=== PATIENT | female | born 1995 | race Hispanic/Latino ===

== ENCOUNTER 2019-11-14 11:14 | Emergency (ER) | payer OTHER, SELFPAY ==
[2019-11-14 11:25] VITALS: BP 113/72; PULSE 82; RESP 16; TEMP 37; O2SAT 99
--- NOTE | 2019-11-14 11:35 | ED.GENADULT ---
HPI - General Adult General Chief complaint: Unspecified Stated complaint: Painful swelling below left ear Time Seen by Provider: 11/14/19 11:35 Source: patient and RN notes reviewed Mode of arrival: ambulatory Limitations: no limitations History of Present Illness HPI narrative: This is a 24 years old female presented office for evaluation of painful lesion below her left ear.She first noticed it yesterday, and it has gotten bigger and more painful today. Denies any associated symptoms include fever, sore throat, congestion, ill feeling or difficulty swallowing/chewing. No treatment prior to arrival.She is otherwise healthy with no medical problems. She does not smoke. Related Data Allergies Allergy/AdvReac Type Severity Reaction Status Date / Time No Known Allergies Allergy Verified 11/14/19 11:33 Review of Systems Review of Systems: Narrative: CONSTITUTIONAL: Denies fever EYES: Denies visual changes ENT: Denies congestion, sore throat, otalgia. CARDIOVASCULAR: Denies chest pain RESPIRATORY: Denies cough GASTROINTESTINAL: Denies abdominal pain, nausea, vomiting, diarrhea. GENITOURINARY: Denies urinary symptoms or discharge SKIN: Denies rash/lesions MUSCULOSKELETAL: Denies acute back pain, joint pain, or myalgia. NEUROLOGIC: Denies numbness, or focal weakness. PMFSH Social History Social History (Updated 11/14/19 @ 11:48 by AIDA Diaz) Smoking status: Never smoker Gender identity (if verbalized by the patient): Female Comments At time of signature, I agree with nursing past medical, surgical, social and family history. There is no relevant family history pertinent to the presenting complaint. Exam Narrative: Exam Narrative: GENERAL: This is a well-nourished, well-developed patient, in no apparent distress. EYES: Sclera clear/white. Vision is grossly intact. EARS: External ears normal, auditory canals clear and without drainage, TMs normal without perforation. Hearing grossly intact. NOSE: External nose normal with no obvious nasal discharge, nares without redness, no rhinorrhea. THROAT: Mucous membranes moist, posterior pharynx clear. NO TMJ tenderness or trimus NECK: Neck supple, tender, warmth, erythema left cervical lymphadenopathy. NO thyromegaly. CARDIOVASCULAR: Regular rate and rhythm without murmurs, gallops, or rubs. RESPIRATORY: Clear to auscultation. Breath sounds equal bilaterally. No wheezes, rales, or rhonchi. GASTROINTESTINAL: Abdomen soft, non-tender, nondistended. Bowel sounds are active. No hepato-splenomegaly, or palpable masses. No guarding. SKIN: warm, intact with no suspicious lesions or rash, good texture and turgor. NEURO: awake, alert, and oriented to person, place and time. There were no obvious focal neurologic abnormalities. Steady gait Y[place]ir Coma Scale Eye Opening: Spontaneous 4 [place] Coma Scale Motor: Obeys Commands 6 [place] Coma Scale Verbal: Oriented 5 Course Vital Signs Vital signs: Vital Signs Temperature 98.6 F 11/14/19 11:25 Pulse Rate 82 11/14/19 11:25 Respiratory Rate 16 11/14/19 11:25 Blood Pressure 113/72 11/14/19 11:25 Pulse Oximetry 99 11/14/19 11:25 Temperature 98.6 F 11/14/19 11:25 Pulse Rate 82 11/14/19 11:25 Respiratory Rate 16 11/14/19 11:25 Blood Pressure 113/72 11/14/19 11:25 Pulse Oximetry 99 11/14/19 11:25 Medical Decision Making MDM Narrative Medical decision making narrative: Influenza and strep are negative, cannot rule out infected lymph node or cyst; will go a head and treat her with antibiotic at this time. The instructions also include specific and strict return/GO TO THE ER as well as f/u information. All questions have been answered, and the patient deny any further questions with discharge and discharge plan. Differential Diagnosis Differential Diagnosis: cellulitis, sinusitis, pharyngitis,cancer Medical Records Medical records reviewed: Yes I reviewed the patient's medical records. Vi
== END 2019-11-14 11:50 | disposition home or self-care (01) ==
PROVIDERS: Emergency Provider Nurse Practitioner
DX: R59.1 Generalized enlarged lymph nodes (principal)
CPT/HCPCS: 87081; 87804; 87880; 99203; G0463